=== PATIENT | female | born 1970 | race Caucasian/White ===

== ENCOUNTER → 2016-12-11 | Outpatient (CLI) | payer SELFPAY ==
[~2016-12-11] MED LIST: ASEN10TA9 PO; DULO30CA23 PO; HYDR-2122 PO; OMEP20CA81 PO; QUET50TA16 PO; TRAZ-56 PO
--- NOTE | 2016-12-11 13:48 | DI ---
Indication: ITS.REASON: N91.2 AMENORRHEA; N92.0 EXCESSIVE FREQUENT MENSTRUATION WITH RE PROCEDURE: US TRANSVAGINAL (NON-OB): Encounter: Initial Comparison: None FINDINGS: Transvaginal and transabdominal pelvic imaging was performed. The uterus measures 10.4 x 5.2 x 6.6 cm. section scar noted. The parenchyma is otherwise homogeneous without fibroids. The endometrial stripe measures 8 mm in thickness. There is some fluid within the endometrial canal. There is no evidence of focal endometrial mass. Right ovary appears normal and measures 3.3 x 2.5 x 1.5 cm. The left ovary was not visualized by ultrasound. There are no abnormal adnexal masses detected. IMPRESSION: Small amount of fluid in the endometrial canal without focal endometrial thickening or mass. This could be due to the phase of patient's menstrual cycle. Otherwise negative exam. .
== END ==
LOC: IMA 12:17
PROVIDERS: ATTEND Internal Medicine
DX: N91.2 Amenorrhea, unspecified (principal); N92.0 Excessive and frequent menstruation with regular cycle

== ENCOUNTER 2016-12-22 00:10 | Emergency (ER) | payer SELFPAY ==
[~2016-12-22] VITALS: Ht 157.5 cm; Wt 80.3 kg
[~2016-12-22 00:10] MED LIST changes: -ASEN10TA9 PO
--- OUTSIDE RECORDS SUMMARY | 2016-12-22 00:15 | XMS REPORT ---
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 Problem Unspecified vitamin D deficiency 268.9 Active Problem Depressive disorder, not elsewhere classified 311 Active Problem Unspecified menopausal and postmenopausal disorder 627.9 Active Problem Neutropenia, unspecified 288.00 Active Problem Nonspecific abnormal results of liver function study 794.8 Active Medications Medication Code System Code Instructions Start Date End Date Status Dosage Vitamin D3 [facility] [address] UNIT Orally weekly x 8 weeks November 06, 2014 1 capsule Cymbalta [facility] [address]-68 90 MG Orally Once a day 2 capsule Omeprazole [facility] [address]-15 20 MG Orally Once a day Jul 11, 2014 1 capsule Iron [facility] 61630144992 325 mg Orally BID 1 tablet Sprintec 28 [facility] [address]-45 0.25-35 MG-MCG Orally Once a day Jun 06, 2014 1 tablet HydrOXYzine HCl [facility] [address]-45 50 MG Orally Four times a day 1 tablet as needed Trazodone HCl [facility] [address]-83 50 MG Orally Once a day 1 tablet at bedtime Seroquel XR [facility] [address]-00 50 MG Orally Once a day 1 tablet in the evening Levothyroxine Sodium [facility] [address]-22 25 MCG Orally Once a day 1 tablet on an empty stomach in the morning Procedures Procedure Coding System Code Date HEPATITIS PANEL CPT-4 86080 February 21, 2015 Results No Known Results Summary Purpose eClinicalWorks Submission
--- OUTSIDE RECORDS SUMMARY | 2016-12-22 00:15 | XMS REPORT ---
Author Author Dwaine Madera Organization eClinicalWorks Address Unknown Phone Unavailable Care Team Providers Care Sander Wooden Pencils Name Role Phone Dwaine Madera CP Unavailable Allergies No Known Allergies Problems Problem Type Condition Code Onset Dates Condition Status Assessment Nonalcoholic steatohepatitis (ROYAL) K75.81 Active Problem Esophageal reflux 530.81 Active Problem [...] Instructions Start Date End Date Status Dosage Trazodone HCl [facility] [address]-32 50 MG Orally Once a day 1 tablet at bedtime Seroquel XR [facility] [address]-48 200 MG Orally Once a day 1 tablet in the evening Latuda [facility] [address]-22 40 MG Orally BID not defined Cymbalta [facility] [address]-84 60 MG Orally Once a day 2 capsule Omeprazole [facility] [address]-82 20 MG Orally Once a day Jul 11, 2014 1 capsule Iron [facility] 06360948616 325 mg Orally BID 1 tablet Procedures Procedure Coding System Code Date IRON PROFILE 2 CPT-4 01469 Jul 16, 2015 IRON PROFILE 1 CPT-4 85044 Jul 16, 2015 FERRITIN CPT-4 79072 Jul 16, 2015 RETICULOCYTE COUNT AUTO CPT-4 67818 Jul 16, 2015 PATHOLOGIST REVIEW CPT-4 10659 Jul 16, 2015 Results No Known Results Summary Purpose eClinicalWorks Submission
--- OUTSIDE RECORDS SUMMARY | 2016-12-22 00:15 | XMS REPORT ---
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 Assessment Other nonspecific abnormal serum enzyme levels [...] Date End Date Status Dosage Vitamin D3 [facility] [address] UNIT Orally once weekly Jul 20, 2014 Sep 18, 2014 as directed Ranitidine HCl [facility] [address]-97 300 MG Orally Sep 18, 2014 as directed Cymbalta [facility] [address]-21 90 MG Orally Once a day 2 capsule Seroquel XR [facility] [address]-62 50 MG Orally Once a day 1 tablet in the evening Trazodone HCl [facility] [address]-94 50 MG Orally Once a day 1 tablet at bedtime Sprintec 28 [facility] [address]-78 0.25-35 MG-MCG Orally Once a day Jun 06, 2014 1 tablet Iron [facility] [address]-14 325 (65 Fe) MG Orally TID Jun 06, 2014 1 tablet Omeprazole [facility] [address]-72 20 MG Orally Once a day Jul 11, 2014 1 capsule HydrOXYzine HCl [facility] [address]-64 50 MG Orally Four times a day 1 tablet as needed Procedures Procedure Coding System Code Date OFFICE VISIT, EST-LOW COMPLEXITY (15 MIN.) CPT-4 03923 Sep 18, 2014 Vital Signs Date/Time: Sep 18, 2014 Height 61.5 in Weight 187.8 lbs Temperature 98.4 F Blood Pressure Diastolic 82 mm Hg Blood Pressure Systolic 114 mm Hg Cardiac Monitoring Heart Rate 96 /min BMI 34.91 Index Respiratory Rate 16 /min Results No Known Results Summary Purpose eClinicalWorks Submission
--- OUTSIDE RECORDS SUMMARY | 2016-12-22 00:15 | XMS REPORT ---
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
--- OUTSIDE RECORDS SUMMARY | 2016-12-22 00:15 | XMS REPORT ---
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 Problem Esophageal reflux 530.81 Active Problem [...] Instructions Start Date End Date Status Dosage Omeprazole [facility] [address]-29 20 MG Orally Once a day Jul 11, 2014 1 capsule Trazodone HCl [facility] [address]-67 50 MG Orally Once a day 1 tablet at bedtime HydrOXYzine HCl [facility] [address]-12 50 MG Orally Four times a day 1 tablet as needed Sprintec 28 [facility] [address]-64 0.25-35 MG-MCG Orally Once a day Jun 06, 2014 1 tablet Levothyroxine Sodium [facility] [address]-89 25 MCG Orally Once a day 1 tablet on an empty stomach in the morning Cymbalta [facility] [address]-58 90 MG Orally Once a day 2 capsule Vitamin D3 [facility] [address] 83882 UNIT Orally weekly x 8 weeks November 06, 2014 1 capsule Seroquel XR [facility] [address]-45 50 MG Orally Once a day 1 tablet in the evening Iron [facility] 17319162449 325 mg Orally BID 1 tablet Procedures Procedure Coding System Code Date COMPLETE CBC W/AUTO DIFF WBC CPT-4 64726 February 06, 2015 OFFICE VISIT, EST-LOW COMPLEXITY (10 MIN.) CPT-4 66301 February 06, 2015 COMPREHENSIVE METABOLIC PANEL CPT-4 88258 February 06, 2015 Vital Signs Date/Time: February 06, 2015 Height 61.5 in Weight 180.4 lbs Temperature 98.4 F Blood Pressure Diastolic 82 mm Hg Blood Pressure Systolic 128 mm Hg Cardiac Monitoring Heart Rate 84 /min BMI 33.53 Index Respiratory Rate 18 /min Results Name Result Date Reference Range Unit Abnormality Flag CBC With Platelet and Differential Comprehensive Metabolic Panel (CMP) Summary Purpose eClinicalWorks Submission
--- OUTSIDE RECORDS SUMMARY | 2016-12-22 00:15 | XMS REPORT ---
Author Author Dwaine Madera Organization eClinicalWorks Address Unknown Phone Unavailable Care Team Providers Care Community Cultural Development Officer Name Role Phone Dwaine Madera CP Unavailable Allergies, Adverse Reactions, Alerts Substance Reaction Event Type Penicillin hives Drug Allergy latex rash Non Drug Allergy Problems Problem Type Condition Code Onset Dates Condition Status Assessment Gastro-esophageal reflux disease without esophagitis K21.9 Active Assessment Other chest pain R07.89 Active Assessment Major depressive disorder, single episode, unspecified F32.9 Active Assessment Other iron deficiency anemias D50.8 Active Assessment Anemia, unspecified D64.9 Active Problem Esophageal reflux 530.81 Active Problem [...] Instructions Start Date End Date Status Dosage Cymbalta [facility] [address]-45 60 MG Orally Once a day 2 capsule Iron [facility] 61796965343 325 mg Orally BID 1 tablet Trazodone HCl [facility] [address]-41 50 MG Orally Once a day 1 tablet at bedtime Omeprazole [facility] [address]-75 20 MG Orally Once a day Jul 11, 2014 1 capsule Seroquel XR [facility] [address]-39 200 MG Orally Once a day 1 tablet in the evening Procedures Procedure Coding System Code Date OFFICE VISIT, EST-MOD. COMPLEXITY (25 MIN) CPT-4 71897 May 31, 2015 Vital Signs Date/Time: May 31, 2015 Height 61.5 in Weight 191.0 lbs Temperature 97.9 F Blood Pressure Diastolic 74 mm Hg Blood Pressure Systolic 120 mm Hg Cardiac Monitoring Heart Rate 88 /min BMI 35.50 Index Respiratory Rate 16 /min Results No Known Results Summary Purpose eClinicalWorks Submission
--- OUTSIDE RECORDS SUMMARY | 2016-12-22 00:15 | XMS REPORT ---
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 Problem Neutropenia, unspecified 288.00 Active Problem Esophageal reflux 530.81 Active Problem Unspecified menopausal and postmenopausal disorder 627.9 Active Assessment Unspecified menopausal and postmenopausal disorder 627.9 Active Problem Nonspecific abnormal results of liver function study 794.8 Active Problem Depressive disorder, not elsewhere classified 311 Active Medications No Known Medications Procedures Procedure Coding System Code Date COMPLETE CBC W/AUTO DIFF WBC CPT-4 26740 Jul 19, 2014 Vital Signs Date/Time: Jul 18, 2014 Height 61.5 inches Weight 183.3 lbs Temperature 98.0 F Blood Pressure Diastolic 70 mm Hg Blood Pressure Systolic 104 mm Hg Cardiac Monitoring Heart Rate 96 Beats per Minute BMI 34.07 Index Respiratory Rate 16 per Minute Results No Known Results Summary Purpose eClinicalWorks Submission
--- OUTSIDE RECORDS SUMMARY | 2016-12-22 00:15 | XMS REPORT ---
Author Author Chantal Marino eClinicalWorks Address Unknown Phone Unavailable Care Team Providers Care Reverberatory Skimmer Name Role Phone Chantal Marino Unavailable Allergies, Adverse Reactions, Alerts Substance Reaction Event Type Penicillin hives Drug Allergy latex rash Non Drug Allergy Problems Problem Type Condition ICD-9 Code Onset Dates Condition Status Problem Unspecified menopausal and postmenopausal disorder 627.9 Active Assessment Depressive disorder, not elsewhere classified 311 Active Problem Depressive disorder, not elsewhere classified 311 Active Assessment Unspecified menopausal and postmenopausal disorder 627.9 Active Assessment Encounter for long-term (current) use of other medications V58.69 Active Medications Medication Code System Code Instructions Start Date End Date Status Dosage HydrOXYzine HCl [facility] [address]-14 50 MG Orally Four times a day Active 1 tablet as needed Ranitidine HCl [facility] [address]-80 300 MG Orally Active as directed Trazodone HCl [facility] [address]-87 50 MG Orally Once a day Active 1 tablet at bedtime Diflucan [facility] [address]-15 200 MG Orally Once a day January 05, 2014 Inactive 1 tablet Vitamin D [facility] [address]-20 1000 UNIT Orally Once a day Active 1 capsule Cymbalta [facility] [address]-41 90 MG Orally Once a day Active 2 capsule Seroquel XR [facility] [address]-05 50 MG Orally Once a day Active 1 tablet in the evening Procedures Procedure Coding System Code Date URINALYSIS, IN HOUSE CPT-4 91592 May 26, 2014 COMPREHENSIVE METABOLIC PANEL CPT-4 84155 May 26, 2014 TSH CPT-4 88342 May 26, 2014 OFFICE VISIT, EST-LOW COMPLEXITY (15 MIN.) CPT-4 42232 May 26, 2014 COMPLETE CBC W/AUTO DIFF WBC CPT-4 29228 May 26, 2014 Vital Signs Date/Time: May 26, 2014 Height 61.5 inches Weight 182.1 lbs Temperature 98 F Blood Pressure Diastolic 80 mm Hg Blood Pressure Systolic 100 mm Hg Cardiac Monitoring Heart Rate 80 Beats per Minute BMI 33.85 Index Respiratory Rate 16 per Minute Results Name Result Date Reference Range Unit In House Urinalysis, automated ----Color yellow [id number] - ----Clarity clear [id number] - CBC With Platelet and Differential Summary Purpose eClinicalWorks Submission
--- OUTSIDE RECORDS SUMMARY | 2016-12-22 00:15 | XMS REPORT ---
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 Assessment Encounter for long-term (current) use of other medications V58.69 Active Assessment Esophageal reflux 530.81 Active Problem 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 Problem Neutropenia, unspecified 288.00 Active Problem Esophageal reflux 530.81 Active Problem Unspecified menopausal and postmenopausal disorder 627.9 Active Assessment Unspecified menopausal and postmenopausal disorder 627.9 Active Problem Nonspecific abnormal results of liver function study 794.8 Active Problem Depressive disorder, not elsewhere classified 311 Active Medications Medication Code System Code Instructions Start Date End Date Status Dosage Sprintec 28 [facility] [address]-05 0.25-35 MG-MCG Orally Once a day Jun 06, 2014 Active 1 tablet Trazodone HCl [facility]NOTE 2] [address]-67 50 MG Orally Once a day Active 1 tablet at bedtime Ranitidine HCl [facility]NOTE 2] [address]-97 300 MG Orally Active as directed HydrOXYzine HCl [facility]NOTE 2] [address]-64 50 MG Orally Four times a day Active 1 tablet as needed Vitamin D [facility]NOTE 2] [address]-73 1000 UNIT Orally Once a day Active 1 capsule Iron [facility]NOTE 2] [address]-49 325 (65 Fe) MG Orally BID Jun 06, 2014 Active 1 tablet Seroquel XR [facility]NOTE 2] [address]-40 50 MG Orally Once a day Active 1 tablet in the evening Cymbalta [facility]NOTE 2] [address]-70 90 MG Orally Once a day Active 2 capsule Procedures Procedure Coding System Code Date VITAMIN D 25 HYDROXY CPT-4 92387 Jul 18, 2014 OFFICE VISIT, EST-LOW COMPLEXITY (15 MIN.) CPT-4 93323 Jul 18, 2014 COMPLETE CBC W/AUTO DIFF WBC CPT-4 61898 Jul 18, 2014 Vital Signs Date/Time: Jul 18, 2014 Height 61.5 inches Weight 183.3 lbs Temperature 98.0 F Blood Pressure Diastolic 70 mm Hg Blood Pressure Systolic 104 mm Hg Cardiac Monitoring Heart Rate 96 Beats per Minute BMI 34.07 Index Respiratory Rate 16 per Minute Results Name Result Date Reference Range Unit CBC With Platelet and Differential Vitamin D, 25-Hydroxy Summary Purpose eClinicalWorks Submission
--- OUTSIDE RECORDS SUMMARY | 2016-12-22 00:15 | XMS REPORT ---
Author Author Elli Rodriguez [facility] eClinicalWorks Address Unknown Phone Unavailable Care Team Providers Care Bus Mechanic Name Role Phone Elli Rodriguez CP Unavailable Allergies No Known Allergies Problems Problem Type Condition Code Onset Dates Condition Status Problem Esophageal [...]
--- OUTSIDE RECORDS SUMMARY | 2016-12-22 00:15 | XMS REPORT ---
Author Author Elli Rodriguez [facility] eClinicalWorks Address Unknown Phone Unavailable Care Team Providers Care Digital Performance Analyst Name Role Phone Elli Rodriguez CP Unavailable [...] Instructions Start Date End Date Status Dosage Iron [facility] [address]-19 325 (65 Fe) MG Orally BID Jun 06, 2014 Active 1 tablet Vital Signs Date/Time: Jul 18, 2014 Height 61.5 inches Weight 183.3 lbs Temperature 98.0 F Blood Pressure Diastolic 70 mm Hg Blood Pressure Systolic 104 mm Hg Cardiac Monitoring Heart Rate 96 Beats per Minute BMI 34.07 Index Respiratory Rate 16 per Minute Results No Known Results Summary Purpose eClinicalWorks Submission
--- OUTSIDE RECORDS SUMMARY | 2016-12-22 00:15 | XMS REPORT ---
Author Author Elli Rodriguez [facility] eClinicalWorks Address Unknown Phone Unavailable Care Team Providers Care Ballpoint Pens Assembler Name Role Phone Elli Rodriguez CP Unavailable [...]
--- OUTSIDE RECORDS SUMMARY | 2016-12-22 00:15 | XMS REPORT ---
Author Author Elli Rodriguez [facility] eClinicalWorks Address Unknown Phone Unavailable Care Team Providers Care Rn Clinical Research Name Role Phone Elli Rodriguez CP Unavailable Allergies No Known Allergies Problems Problem Type Condition ICD-9 Code Onset Dates Condition Status Assessment Other nonspecific abnormal serum enzyme levels 790.5 Active Assessment Unspecified vitamin D deficiency 268.9 Active Assessment Iron deficiency anemia secondary to [...] Date End Date Status Dosage HydrOXYzine HCl [facility] [address]-34 50 MG Orally Four times a day 1 tablet as needed Omeprazole [facility] [address]-41 20 MG Orally Once a day Jul 11, 2014 1 capsule Iron [facility] 32229538802 325 mg Orally BID 1 tablet Trazodone HCl [facility] [address]-49 50 MG Orally Once a day 1 tablet at bedtime Cymbalta [facility] [address]-42 90 MG Orally Once a day 2 capsule Seroquel XR [facility] [address]-73 50 MG Orally Once a day 1 tablet in the evening Sprintec 28 [facility] [address]-02 0.25-35 MG-MCG Orally Once a day Jun 06, 2014 1 tablet Procedures Procedure Coding System Code Date COMPLETE CBC W/AUTO DIFF WBC CPT-4 59836 November 01, 2014 COMPREHENSIVE METABOLIC PANEL CPT-4 98002 November 01, 2014 VITAMIN D 25 HYDROXY CPT-4 02303 November 01, 2014 Results No Known Results Summary Purpose eClinicalWorks Submission
--- OUTSIDE RECORDS SUMMARY | 2016-12-22 00:15 | XMS REPORT ---
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 328510281 Problem Unspecified vitamin D deficiency 268.9 Active 34161540 Problem Esophageal reflux 530.81 Active 992729406 Problem Seasonal allergies J30.2 Active 614952148 Problem Hyperlipidemia, unspecified E78.5 Active 00955556 Problem Major depressive disorder, single episode, unspecified F32.9 Active 48480920 Problem Allergic rhinitis, unspecified J30.9 Active 25947630 Problem Gastro-esophageal reflux disease without esophagitis K21.9 Active 929719946 Problem Decreased white blood cell count, unspecified D72.819 Active 46753048 Problem Unspecified menopausal and postmenopausal disorder 627.9 Active 210443507 Problem Depressive disorder, not elsewhere classified 311 Active 44763405 Problem Nonspecific abnormal results of liver function study 794.8 Active 915050112 Assessment Acute sinusitis, unspecified J01.90 Jul, Active 64669708 Problem Neutropenia, unspecified 288.00 Active 515485021 ALLERGIES Substance Reaction Event Type Date Status Penicillin hives Drug Allergy Jul, Active latex rash Non Drug Allergy Jul, Active SOCIAL HISTORY No smoking Hx information available PLAN OF CARE Activity Details Pending Test In House Test, Urine 2 Weeks,Reason: VITAL SIGNS Weight 189.4 lbs 2016-07-24 Height 61.5 in 2016-07-24 Temperature 98.1 degrees Fahrenheit 2016-07-24 BMI 35.20 kg/m2 2016-07-24 Heart Rate 97 /min 2016-07-24 Respiratory Rate 16 /min 2016-07-24 Oximetry 99 % 2016-07-24 Blood pressure systolic 130 mm Hg 2016-07-24 Blood pressure diastolic 86 mm Hg 2016-07-24 MEDICATIONS Medication Instructions Dosage Frequency Start Date End Date Duration Status Trazodone HCl 50 MG Orally 1 time at hs 2 tabs Active Cymbalta 60 MG Orally Once a day 2 capsule 24h Active Mucinex 600 MG Orally every 12 hrs as needed for cough/congestion. 1 tablet as needed Jul, Jul, 10 days Active Omeprazole 20 MG Orally Once a day 1 capsule 24h Jul, 30 days Active Doxycycline Hyclate 100 MG Orally Twice a day 1 tablet 12h Jul, Jul, 10 day(s) Active Saphris 5 MG Sublingual Twice a day 1 tablet under the tongue and allow to dissolve 12h Active Nasacort AQ 55 MCG/ACT Nasally Once a day 1 puff in each nostril 24h Active Singulair 10 MG Orally Once a day 1 tablet in the evening 24h Jun, 30 days Active RESULTS Name Result Date Reference Range In House Test, Urine Test, Urine negative PROCEDURES Procedure Date Ordered Related Diagnosis Body Site TEST, IN HOUSE Jul 24, 2016 OFFICE VISIT, EST-LOW COMPLEXITY (15 MIN.) Jul 24, 2016 IMMUNIZATIONS No Known Immunizations
--- OUTSIDE RECORDS SUMMARY | 2016-12-22 00:15 | XMS REPORT ---
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 Problem Unspecified vitamin D deficiency 268.9 Active Problem Depressive disorder, not elsewhere classified 311 Active Problem Unspecified menopausal and postmenopausal disorder 627.9 Active Problem Neutropenia, unspecified 288.00 Active Problem Nonspecific abnormal results of liver function study 794.8 Active Assessment Other specified abnormal uterine and vaginal bleeding N93.8 Active Assessment Major depressive disorder, single episode, unspecified F32.9 Active Assessment Other fatigue R53.83 Active Medications Medication Code System Code Instructions Start Date End Date Status Dosage Seroquel XR [facility] [address]-50 200 MG Orally Once a day 1 tablet in the evening Iron [facility] 09847615581 325 mg Orally BID 1 tablet Omeprazole [facility] [address]-05 20 MG Orally Once a day Jul 11, 2014 1 capsule Cymbalta [facility] [address]-30 60 MG Orally Once a day 2 capsule Trazodone HCl [facility] [address]-82 50 MG Orally Once a day 1 tablet at bedtime Latuda [facility] [address]-41 40 MG Orally BID not defined Procedures Procedure Coding System Code Date OFFICE VISIT, EST-MOD. COMPLEXITY (25 MIN) CPT-4 51464 Jun 14, 2015 Vital Signs Date/Time: Jun 14, 2015 Height 61.5 in Weight 190.8 lbs Temperature 97.4 F Blood Pressure Diastolic 82 mm Hg Blood Pressure Systolic 118 mm Hg Cardiac Monitoring Heart Rate 80 /min BMI 35.46 Index Respiratory Rate 16 /min Results No Known Results Summary Purpose eClinicalWorks Submission
--- OUTSIDE RECORDS SUMMARY | 2016-12-22 00:15 | XMS REPORT ---
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 Problem Hyperlipidemia, unspecified E78.5 Active Problem Gastro-esophageal reflux disease without esophagitis K21.9 Active Problem Seasonal allergies J30.2 Active Problem Allergic rhinitis, unspecified J30.9 Active Problem Unspecified vitamin D deficiency 268.9 Active Problem Decreased white blood cell count, unspecified D72.819 Active Problem Major depressive disorder, single episode, unspecified F32.9 Active Assessment Seasonal allergies J30.2 Active Problem Unspecified menopausal and postmenopausal disorder 627.9 Active Problem Depressive disorder, not elsewhere classified 311 Active Problem Nonspecific abnormal results of liver function study 794.8 Active Medications Medication Code System Code Instructions Start Date End Date Status Dosage Saphris [facility] [address]-61 5 MG Sublingual Twice a day 1 tablet under the tongue and allow to dissolve Nasacort AQ [facility] [address]-17 55 MCG/ACT Nasally Once a day 1 puff in each nostril Singulair [facility] [address]-07 10 MG Orally Once a day Jun 17, 2016 1 tablet in the evening Cymbalta [facility] [address]-21 60 MG Orally Once a day 2 capsule Mariah Allergy [facility] [address]-12 180 MG Orally Once a day Jun 17, 2016 Jul 17, 2016 1 tablet Omeprazole [facility] [address]-71 20 MG Orally Once a day Jul 11, 2014 1 capsule Trazodone HCl [facility] [address]-52 50 MG Orally 1 time at hs 2 tabs Procedures Procedure Coding System Code Date OFFICE VISIT, EST-LOW COMPLEXITY (15 MIN.) CPT-4 26830 Jul 15, 2016 Vital Signs Date/Time: Jul 15, 2016 Temperature 98.3 F Height 61.5 in Weight 190.4 lbs Blood Pressure Diastolic 78 mm Hg Blood Pressure Systolic 134 mm Hg Cardiac Monitoring Heart Rate 92 /min BMI 35.39 Index Oximetry 97 % Respiratory Rate 16 /min Results No Known Results Summary Purpose eClinicalWorks Submission
--- OUTSIDE RECORDS SUMMARY | 2016-12-22 00:15 | XMS REPORT ---
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 Problem Neutropenia, unspecified 288.00 Active Problem Gastro-esophageal reflux disease without esophagitis K21.9 Active Problem Decreased white blood cell count, unspecified D72.819 Active Problem Hyperlipidemia, unspecified E78.5 Active Problem Unspecified vitamin D deficiency 268.9 Active Problem Esophageal reflux 530.81 Active Problem Major depressive disorder, single episode, unspecified F32.9 Active Problem Allergic rhinitis, unspecified J30.9 Active Assessment Abnormal results of liver function studies R94.5 Active Assessment Hyperlipidemia, unspecified E78.5 Active Assessment Gastro-esophageal reflux disease without esophagitis K21.9 Active Problem Unspecified menopausal and postmenopausal disorder 627.9 Active Assessment Allergic rhinitis, unspecified J30.9 Active Problem Depressive disorder, not elsewhere classified 311 Active Medications Medication Code System Code Instructions Start Date End Date Status Dosage Omeprazole [facility] [address]-03 20 MG Orally Once a day Jul 11, 2014 1 capsule Singulair [facility] [address]-09 5 MG Orally Once a day Jun 17, 2016 1 tablet in the evening Cymbalta [facility] [address]-29 60 MG Orally Once a day 2 capsule Trazodone HCl [facility] [address]-13 50 MG Orally 1 time at hs 2 tabs Saphris [facility] [address]-75 5 MG Sublingual Twice a day 1 tablet under the tongue and allow to dissolve Mariah Allergy [facility] [address]-95 180 MG Orally Once a day Jun 17, 2016 Jul 17, 2016 1 tablet Nasacort AQ [facility] [address]-76 55 MCG/ACT Nasally Once a day 1 puff in each nostril Procedures Procedure Coding System Code Date OFFICE VISIT, EST-LOW COMPLEXITY (15 MIN.) CPT-4 49250 Jun 17, 2016 Vital Signs Date/Time: Jun 17, 2016 Temperature 98.4 F Height 61.5 in Weight 183.12 lbs Blood Pressure Diastolic 86 mm Hg Blood Pressure Systolic 136 mm Hg Cardiac Monitoring Heart Rate 96 /min BMI 34.04 Index Oximetry 97 % Respiratory Rate 16 /min Results No Known Results Summary Purpose eClinicalWorks Submission
--- OUTSIDE RECORDS SUMMARY | 2016-12-22 00:15 | XMS REPORT ---
Author Author Dwaine Madera [facility] eClinicalWorks Address Unknown Phone Unavailable Care Team Providers Care Automatic Lehr Operator Name Role Phone Dwaine Madera CP Unavailable Allergies No Known Allergies Problems Problem Type Condition Code Onset Dates Condition Status Problem Depressive disorder, not elsewhere classified 311 Active Problem Neutropenia, unspecified 288.00 Active Problem Nonspecific abnormal results of liver function study 794.8 Active Assessment Anemia, unspecified D64.9 Active Problem Unspecified menopausal and postmenopausal disorder 627.9 Active Problem Decreased white blood cell count, unspecified D72.819 Active Problem Major depressive disorder, single episode, unspecified F32.9 Active Problem Gastro-esophageal reflux disease without esophagitis K21.9 Active Problem Esophageal reflux 530.81 Active Problem 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 for 1 tablet as needed Trazodone HCl [facility] [address]-99 50 MG Orally 1 time at hs 2 tabs Nasal Decongestant [place] [facility] [address]-27 0.05 % Nasally Twice a day 2 drops as needed Nasacort AQ [facility] [address]-12 55 MCG/ACT Nasally Once a day 1 puff in each nostril Cymbalta [facility] [address]-63 60 MG Orally Once a day 2 capsule Procedures Procedure Coding System Code Date COMPREHENSIVE METABOLIC PANEL CPT-4 53284 Jun 03, 2016 LIPID PANEL CPT-4 76693 Jun 03, 2016 COMPLETE CBC W/AUTO DIFF WBC CPT-4 41761 Jun 03, 2016 TEST, IN HOUSE CPT-4 41131 Jun 03, 2016 TSH CPT-4 68000 Jun 03, 2016 URINALYSIS, IN HOUSE CPT-4 32592 Jun 03, 2016 Results No Known Results Summary Purpose eClinicalWorks Submission
--- OUTSIDE RECORDS SUMMARY | 2016-12-22 00:16 | XMS REPORT ---
Author Author Elli Rodriguez [facility] eClinicalWorks Address Unknown Phone Unavailable Care Team Providers Care Well Drill Operator Name Role Phone Elli Rodriguez CP Unavailable [...]
--- OUTSIDE RECORDS SUMMARY | 2016-12-22 00:16 | XMS REPORT ---
Author Author Elli Rodriguez Organization [employer] Address Unknown Phone Unavailable Care Team Providers Care Mine Engineer Name Role Phone Elli Rodriguez CP Unavailable Allergies No Known Allergies Problems Problem Type Condition Code Onset Dates Condition Status Assessment Nonspecific abnormal results of liver function study 794.8 Active Assessment Unspecified menopausal and postmenopausal disorder 627.9 Active Problem Esophageal reflux 530.81 Active Problem [...] Date End Date Status Dosage Trazodone HCl [facility] [address]-82 50 MG Orally Once a day 1 tablet at bedtime Cymbalta [facility] [address]-49 90 MG Orally Once a day 2 capsule Seroquel XR [facility] [address]-27 50 MG Orally Once a day 1 tablet in the evening Sprintec 28 [facility] [address]-98 0.25-35 MG-MCG Orally Once a day Jun 06, 2014 1 tablet Iron [facility] [address]-65 325 (65 Fe) MG Orally BID Jun 06, 2014 1 tablet HydrOXYzine HCl [facility] [address]-83 50 MG Orally Four times a day 1 tablet as needed Ranitidine HCl [facility] [address]-65 300 MG Orally as directed Vitamin D3 [facility] [address]807 UNIT Orally once weekly Jul 20, 2014 Sep 18, 2014 as directed Procedures Procedure Coding System Code Date COMPLETE CBC W/AUTO DIFF WBC CPT-4 46563 Sep 14, 2014 COMPREHENSIVE METABOLIC PANEL CPT-4 48211 Sep 14, 2014 Results No Known Results Summary Purpose eClinicalWorks Submission
--- OUTSIDE RECORDS SUMMARY | 2016-12-22 00:16 | XMS REPORT ---
Author Author Neto Jean Organization [employer] Address Unknown Phone Unavailable Care Team Providers Care Production Control Scheduler Name Role Phone Neto Jean CP Unavailable Allergies No Known Allergies Problems Problem Type Condition Code Onset Dates Condition Status Problem Depressive disorder, not elsewhere classified 311 Active Problem Neutropenia, unspecified 288.00 Active Problem Nonspecific abnormal results of liver function study 794.8 Active Assessment Dental caries on pit and fissure surface penetrating into pulp K02.53 Active Problem Unspecified menopausal and postmenopausal disorder [...] Start Date End Date Status Dosage Iron [facility] 46656006765 325 mg Orally BID 1 tablet Omeprazole [facility] [address]-73 20 MG Orally Once a day Jul 11, 2014 1 capsule Trazodone HCl [facility] [address]-10 50 MG Orally Once a day 1 tablet at bedtime Hydrocodone-Acetaminophen [facility] [address]-63 7.5-325 MG Orally every 4-6 hrs p.r.n. for 1 tablet as needed Cymbalta [facility] [address]-60 60 MG Orally Once a day 2 capsule Procedures Procedure Coding System Code Date EXTRAC ERUPTED TOOTH/EXPOSED ROOT CPT-4 D7140 Jun 02, 2016 Results No Known Results Summary Purpose eClinicalWorks Submission
--- OUTSIDE RECORDS SUMMARY | 2016-12-22 00:16 | XMS REPORT ---
Author Author Dwaine Madera Organization [employer] Address Unknown Phone Unavailable Care Team Providers Care Pastor Name Role Phone Dwaine Madera CP Unavailable Allergies No Known Allergies Problems Problem Type Condition Code Onset Dates Condition Status Assessment Other chest pain R07.89 Active Problem Esophageal reflux 530.81 Active Problem [...] Date End Date Status Dosage Seroquel XR [facility] [address]-12 200 MG Orally Once a day 1 tablet in the evening Omeprazole [facility] [address]-03 20 MG Orally Once a day Jul 11, 2014 1 capsule Cymbalta [facility] [address]-84 60 MG Orally Once a day 2 capsule Iron [facility] 72977381195 325 mg Orally BID 1 tablet Trazodone HCl [facility] [address]-35 50 MG Orally Once a day 1 tablet at bedtime Procedures Procedure Coding System Code Date URINALYSIS, IN HOUSE CPT-4 05431 Jun 04, 2015 CBC WITH MANUAL DIFFERENTIAL CPT-4 44356 Jun 04, 2015 TEST, IN HOUSE CPT-4 88997 Jun 04, 2015 LIPID PANEL CPT-4 14654 Jun 04, 2015 COMPREHENSIVE METABOLIC PANEL CPT-4 37394 Jun 04, 2015 Results Name Result Date Reference Range Unit Abnormality Flag In House Test, Urine Summary Purpose eClinicalWorks Submission
--- OUTSIDE RECORDS SUMMARY | 2016-12-22 00:16 | XMS REPORT ---
Author Author Neto Jean [facility] eClinicalWorks Address Unknown Phone Unavailable Care Team Providers Care Hide Paster Name Role Phone Neto Jean CP Unavailable Allergies, Adverse Reactions, Alerts Substance Reaction Event Type Penicillin hives Drug Allergy latex rash Non Drug Allergy Problems Problem Type Condition Code Onset Dates Condition Status Assessment Encounter for dental examination and cleaning without abnormal findings Z01.20 Active Problem Esophageal reflux 530.81 Active Problem [...] Start Date End Date Status Dosage Cymbalta [facility] [address]-21 60 MG Orally Once a day 2 capsule Iron [facility] 89913748043 325 mg Orally BID 1 tablet Trazodone HCl [facility] [address]-77 50 MG Orally Once a day 1 tablet at bedtime Omeprazole [facility] [address]-81 20 MG Orally Once a day Jul 11, 2014 1 capsule Procedures Procedure Coding System Code Date LTD ORAL EVALUATION - PROBLEM FOCUS CPT-4 D0140 May 28, 2016 PALLIATVE TX DENTAL PAIN-MINOR PROC CPT-4 D9110 May 28, 2016 INTRAORL-PERIAPICAL 1 FILM 37748 CPT-4 D0220 May 28, 2016 Results No Known Results Summary Purpose eClinicalWorks Submission
--- OUTSIDE RECORDS SUMMARY | 2016-12-22 00:16 | XMS REPORT ---
Author Author Elli Rodriguez Organization eClinicalWorks Address Unknown Phone Unavailable Care Team Providers Care Pickling Tank Operator Name Role Phone Elli Rodriguez CP Unavailable Allergies No Known Allergies Problems Problem Type Condition Code Onset Dates Condition Status Assessment Encounter for long-term (current) use of other medications V58.69 Active Problem Esophageal reflux 530.81 Active Problem [...] Date End Date Status Dosage HydrOXYzine HCl [facility] [address]-95 50 MG Orally Four times a day 1 tablet as needed Levothyroxine Sodium [facility] [address]-05 25 MCG Orally Once a day 1 tablet on an empty stomach in the morning Sprintec 28 [facility] [address]-01 0.25-35 MG-MCG Orally Once a day Jun 06, 2014 1 tablet Trazodone HCl [facility] [address]-62 50 MG Orally Once a day 1 tablet at bedtime Cymbalta [facility] [address]-21 90 MG Orally Once a day 2 capsule Omeprazole [facility] [address]-68 20 MG Orally Once a day Jul 11, 2014 1 capsule Seroquel XR [facility] [address]-28 50 MG Orally Once a day 1 tablet in the evening Iron [facility] 29859069987 325 mg Orally BID 1 tablet Vitamin D3 [facility] [address]90 UNIT Orally weekly x 8 weeks November 06, 2014 1 capsule Procedures Procedure Coding System Code Date TSH WITH REFLEX T4 CPT-4 37896 December 19, 2014 Results No Known Results Summary Purpose eClinicalWorks Submission
--- OUTSIDE RECORDS SUMMARY | 2016-12-22 00:16 | XMS REPORT ---
Author Author Elli Rodriguez [facility] eClinicalWorks Address Unknown Phone Unavailable Care Team Providers Care Psychiatric Cns Name Role Phone Elli Rodriguez CP Unavailable [...]
--- OUTSIDE RECORDS SUMMARY | 2016-12-22 00:16 | XMS REPORT ---
Author Author Dwaine Madera Organization eClinicalWorks Address Unknown Phone Unavailable Care Team Providers Care Belt And Link Shop Supervisor Name Role Phone Dwaine Madera CP Unavailable Allergies, Adverse Reactions, Alerts Substance Reaction Event Type Penicillin hives Drug Allergy latex rash Non Drug Allergy Problems Problem Type Condition Code Onset Dates Condition Status Assessment Encounter for gynecological examination (general) (routine) without abnormal findings Z01.419 Active Problem Esophageal reflux 530.81 Active Problem [...] Start Date End Date Status Dosage Cymbalta [facility] [address]-25 60 MG Orally Once a day 2 capsule Trazodone HCl [facility] [address]-90 50 MG Orally Once a day 1 tablet at bedtime Omeprazole [facility] [address]-96 20 MG Orally Once a day Jul 11, 2014 1 capsule Iron [facility] 69860478352 325 mg Orally BID 1 tablet Seroquel XR [facility] [address]-24 200 MG Orally Once a day 1 tablet in the evening Latuda [facility] [address]-61 40 MG Orally BID not defined Procedures Procedure Coding System Code Date OFFICE VISIT, EST-LOW COMPLEXITY (15 MIN.) CPT-4 69067 Aug 02, 2015 Vital Signs Date/Time: Aug 02, 2015 Height 61.5 in Weight 194.8 lbs Temperature 97.8 F Blood Pressure Diastolic 86 mm Hg Blood Pressure Systolic 128 mm Hg Cardiac Monitoring Heart Rate 100 /min BMI 36.21 Index Oximetry 98 % Respiratory Rate 16 /min Results No Known Results Summary Purpose eClinicalWorks Submission
--- OUTSIDE RECORDS SUMMARY | 2016-12-22 00:16 | XMS REPORT ---
Author Author Dwaine Madera Organization eClinicalWorks Address Unknown Phone Unavailable Care Team Providers Care Timber Incisor Operator Name Role Phone Dwaine Madera CP Unavailable Allergies, Adverse Reactions, Alerts Substance Reaction Event Type Penicillin hives Drug Allergy latex rash Non Drug Allergy Problems Problem Type Condition Code Onset Dates Condition Status Assessment Dizziness and giddiness R42 Active Assessment Anemia in other chronic diseases classified elsewhere D63.8 Active Assessment Anemia, unspecified D64.9 Active Problem [...] Date End Date Status Dosage Seroquel XR [facility] [address]-43 200 MG Orally Once a day 1 tablet in the evening Trazodone HCl [facility] [address]-46 50 MG Orally Once a day 1 tablet at bedtime Latuda [facility] [address]-33 40 MG Orally BID not defined Cymbalta [facility] [address]-97 60 MG Orally Once a day 2 capsule Omeprazole [facility] [address]-20 20 MG Orally Once a day Jul 11, 2014 1 capsule Iron [facility] 80387175470 325 mg Orally BID 1 tablet Procedures Procedure Coding System Code Date OFFICE VISIT, EST-MOD. COMPLEXITY (25 MIN) CPT-4 88415 Jul 20, 2015 Vital Signs Date/Time: Jul 20, 2015 Height 61.5 in Weight 194.0 lbs Temperature 98.5 F Blood Pressure Diastolic 86 mm Hg Blood Pressure Systolic 134 mm Hg Cardiac Monitoring Heart Rate 100 /min BMI 36.06 Index Oximetry 98 % Respiratory Rate 16 /min Results No Known Results Summary Purpose eClinicalWorks Submission
--- OUTSIDE RECORDS SUMMARY | 2016-12-22 00:16 | XMS REPORT ---
Author Author Chantal Marino Organization eClinicalWorks Address Unknown Phone Unavailable Care Team Providers Care Hazmat Technician Name Role Phone Chantal Marino CP Unavailable Allergies No Known Allergies Problems Problem Type Condition ICD-9 Code Onset Dates Condition Status Assessment Unspecified vitamin D deficiency 268.9 Active Problem [...] Date End Date Status Dosage Vitamin D3 [facility] [address]64 UNIT Orally once weekly Jul 20, 2014 Sep 18, 2014 Active as directed Vitamin D [facility] [address]-11 1000 UNIT Orally Once a day Inactive 1 capsule Vital Signs Date/Time: Jul 18, 2014 Height 61.5 inches Weight 183.3 lbs Temperature 98.0 F Blood Pressure Diastolic 70 mm Hg Blood Pressure Systolic 104 mm Hg Cardiac Monitoring Heart Rate 96 Beats per Minute BMI 34.07 Index Respiratory Rate 16 per Minute Results No Known Results Summary Purpose eClinicalWorks Submission
--- OUTSIDE RECORDS SUMMARY | 2016-12-22 00:16 | XMS REPORT ---
Author Author Elli Rodriguez [facility] eClinicalWorks Address Unknown Phone Unavailable Care Team Providers Care Salvage Machine Operator Name Role Phone Elli Rodriguez CP [...] study 794.8 Active Medications No Known Medications Vital Signs Date/Time: Jul 18, 2014 Height 61.5 inches Weight 183.3 lbs Temperature 98.0 F Blood Pressure Diastolic 70 mm Hg Blood Pressure Systolic 104 mm Hg Cardiac Monitoring Heart Rate 96 Beats per Minute BMI 34.07 Index Respiratory Rate 16 per Minute Results No Known Results Summary Purpose eClinicalWorks Submission
--- OUTSIDE RECORDS SUMMARY | 2016-12-22 00:16 | XMS REPORT ---
Author Author Elli Rodriguez [facility] eClinicalWorks Address Unknown Phone Unavailable Care Team Providers Care Compliance Professional Name Role Phone Elli Rodriguez CP Unavailable Allergies No Known Allergies Problems Problem Type Condition ICD-9 Code Onset Dates Condition Status Assessment Nonspecific elevation of levels of transaminase or lactic acid dehydrogenase (LDH) 790.4 Active Problem Esophageal reflux 530.81 Active Problem [...]
--- OUTSIDE RECORDS SUMMARY | 2016-12-22 00:17 | XMS REPORT ---
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 Assessment Unspecified vitamin D deficiency 268.9 Active Assessment Nonspecific abnormal results of liver function study 794.8 Active Problem Esophageal reflux 530.81 Active Problem [...] Instructions Start Date End Date Status Dosage Levothyroxine Sodium [facility] [address]-82 25 MCG Orally Once a day 1 tablet on an empty stomach in the morning HydrOXYzine HCl [facility] [address]-10 50 MG Orally Four times a day 1 tablet as needed Trazodone HCl [facility] [address]-51 50 MG Orally Once a day 1 tablet at bedtime Sprintec 28 [facility] [address]-13 0.25-35 MG-MCG Orally Once a day Jun 06, 2014 1 tablet Vitamin D3 [facility] 483[address]192 08536 UNIT Orally weekly x 8 weeks November 06, 2014 1 capsule Omeprazole [facility] [address]-20 20 MG Orally Once a day Jul 11, 2014 1 capsule Seroquel XR [facility] [address]-54 50 MG Orally Once a day 1 tablet in the evening Cymbalta [facility] [address]-82 90 MG Orally Once a day 2 capsule Iron [facility] 28765593154 325 mg Orally BID 1 tablet Procedures Procedure Coding System Code Date OFFICE VISIT, EST-MOD. COMPLEXITY (25 MIN) CPT-4 42866 November 06, 2014 Vital Signs Date/Time: November 06, 2014 Height 61.5 in Weight 183.8 lbs Temperature 98.4 F Blood Pressure Diastolic 84 mm Hg Blood Pressure Systolic 126 mm Hg Cardiac Monitoring Heart Rate 84 /min BMI 34.16 Index Respiratory Rate 16 /min Results No Known Results Summary Purpose eClinicalWorks Submission
--- OUTSIDE RECORDS SUMMARY | 2016-12-22 00:17 | XMS REPORT ---
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 Assessment 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 Assessment Neutropenia, unspecified 288.00 Active Problem Depressive disorder, not elsewhere classified 311 Active Problem Unspecified menopausal and postmenopausal disorder 627.9 Active Medications Medication Code System Code Instructions Start Date End Date Status Dosage Ranitidine HCl [facility] [address]-90 300 MG Orally Active as directed Cymbalta [facility] [address]-87 90 MG Orally Once a day Active 2 capsule Sprintec 28 [facility] [address]-00 0.25-35 MG-MCG Orally Once a day Jun 06, 2014 Active 1 tablet HydrOXYzine HCl [facility] [address]-93 50 MG Orally Four times a day Active 1 tablet as needed Iron [facility] [address]-85 325 (65 Fe) MG Orally BID Jun 06, 2014 Active 1 tablet Vitamin D [facility] [address]-05 1000 UNIT Orally Once a day Active 1 capsule Seroquel XR [facility] [address]-79 50 MG Orally Once a day Active 1 tablet in the evening Trazodone HCl [facility] [address]-03 50 MG Orally Once a day Active 1 tablet at bedtime Procedures Procedure Coding System Code Date OFFICE VISIT, EST-LOW COMPLEXITY (15 MIN.) CPT-4 15509 Jun 06, 2014 Vital Signs Date/Time: Jun 06, 2014 Height 61.5 inches Weight 179.8 lbs Temperature 98.2 F Blood Pressure Diastolic 74 mm Hg Blood Pressure Systolic 108 mm Hg Cardiac Monitoring Heart Rate 82 Beats per Minute BMI 33.42 Index Respiratory Rate 16 per Minute Results No Known Results Immunizations Vaccine Administration Date Refused Influenza Jun 06, 2014 Summary Purpose eClinicalWorks Submission
[2016-12-22 00:25] VITALS: TEMP 97.7; Ht 157.5 cm; Wt 80.3 kg
--- NOTE | 2016-12-22 00:54 | ERPDOC ---
Departure Disposition Decision Date: December 22, 2016 Disposition Decision Time: 01:37 Disposition: 01 DISCHARGED HOME, SELF-CARE Impression Impression Impression: Primary Impression: Anxiety Severity: Moderate Condition: Improved Seen By: Physician only Referrals: ISRAEL GREEN DO (Family) Patient Instructions: Anxiety (ED) Problems/Meds/Labs Reviewed?: Yes Medications reviewed and manag: Yes Additional Instructions: Rest tonight Take your routine medications as prescribed Symptoms return or persist see your regular physician Follow up care ordered?: Yes Mental Status: Alert HPI - Psychosocial General Chief Complaint: Psychiatric Problems Stated Complaint: LEFT SIDE PAIN Time Seen by MD: 00:25 Source: patient, family Exam Limitations: language barrier (family interpreting) HPI - Psychosocial Initial Comments Patient describes a feeling of normalized discomfort and pain over the entire left side of her body from the tip of her head all the way down to her feet. She also feels as though the left side of her body is weak, and that she may be having some pressure in her chest. Patient has had these symptoms before due to anxiety, but never this intense, and never lasting this long. Patient is on multiple medications for both depression and anxiety including Saphris an antidepressant and an antianxiety medication. Occurred At: home Onset: Rapid Duration: 1-3 hrs Severity: moderate Allergies: Coded Allergies: Penicillins (Verified Allergy, Unknown, 12/22/16) Past History Past Medical History Neurological: other Hematologic: anemia Psychological: anxiety, depression Surgical History Denies Surgeries Vaccines Hx Influenza Vaccination: No Hx Pneumococcal Vaccination: No Social History Smoking Status: Never smoker Does patient use chewing tobac: No Second Hand Exposure: No Substance Use Type: does not use Alcohol Intake: none Record Review Pertinent history updated: Yes Review of Systems Constitutional Constitutional: DENIES: appetite decrease, appetite increase, chills, dizziness , fever, weakness ENMT Ears: DENIES: pain Hearing: DENIES: hearing loss, tinnitus Balance: DENIES: vertigo Mouth/Throat: DENIES: change in swallowing, change in voice, hoarsness, painful swallowing, sore throat Cardiovascular Cardiac: chest pain, DENIES: dyspnea on exertion Rhythm/Rate: DENIES: irregular beat, palpitations, tachycardia Vascular: DENIES: pedal edema Pulmonary Respiratory: DENIES: cough, dyspnea, pleuritic chest pain GI Upper Abdomen: DENIES: dysphagia, heartburn/indigestion, nausea, pain, vomiting Lower Abdomen: DENIES: blood in stool, constipation, diarrhea, pain General: DENIES: burning, dysuria, frequency, pain, urgency Musculoskeletal General: pain, DENIES: atrophy of muscles, cramps, gout, joint pain, joint swelling, spasm, tenderness, weakness Integumentary Skin: DENIES: rash, sores Neurological General: DENIES: headache, numbness, tingling, vertigo, weakness Physical Exam General General Nourishment: well nourished, well developed, appears stated age Distress Description Patient does not appear to be in pain, and appears depressed General Body Habitus: well groomed Vitals and Pain Weight: Kilograms: Height (feet): Height (inches): Triage Pain Scale: RN VS reviewed by Provider: Yes Normal Exams: Head: Normocephalic w/o trauma Eyes: Pupils are PERRLA w/ EOMI, No scleral icterus, irritation, or foreign bodies noted ENMT: No facial trauma, nasal exudates, pharyngeal erythema, or exudates are noted Neck: Full range of motion, without adenopathy, JVD, bruits or thyromegaly Chest/Resp: Clear all de paz, with good airflow, and symmetry bilaterally CV: Regular rate and rhythm, without murmur or gallop, Pulses 2+ all extremities, capillary refill, <2 seconds all ext., no pedal edema noted Abdomen: Bowel sounds positive, soft, non-tender, non-distended, no hepatosplenomegaly, masses or bruits noted Lymphatic: No lymphadenopathy, or lymphedema noted Musculoskeletal: No tenderness, or deformity noted, good range of motion, all extremities Integumentary: No rashes, hives, or bruising noted, hair and nails, without abnormality Psychiatric: Patient exhibits, appropriate attention, emotion and affect Neurologic (brief) Neurological Brief: FOUND: CN w/o gross def to obs, DTR 2/4 all extremities, gait w/o gross def to obs, motor-no gross deficits, sensory-no gross deficits, NOT FOUND: ataxia Comments Patient has no focal or global deficits, has no weakness or loss of sensation, and is able to comply with all commands without difficulty Progress Results/Orders Orders Procedure Category Date Status Time EKG EKG 12/22/16 Logged Diazepam (Valium) PHA 12/22/16 Complete 00:45 Medications Current ED Medications Diazepam (Valium) 5 mg O ONCE IM Last administered on 12/22/16 00:59; Start 12/22/16 at 00:45; Stop 12/22/16 at 00:46; Status DC Progress Progress EKG shows normal sinus rhythm without ischemia, ectopy, or infarction This appears to represent a response. Patient is given 5 mg Valium IM, per request - to relief CARMEN BENNETT MD December 22, 2016 00:54
[2016-12-22] MEDS ORDERED: ASEN10TA9 PO (01:07)
--- NOTE | 2016-12-22 01:45 | NUR ---
STATUS PT DENIES PAIN AT THIS TIME, IS SLEEPY BUT EASILY AROUSED.
[2016-12-22 02:00] VITALS: BP 140/87; PULSE 92; RESP 12; O2SAT 97
--- NOTE | 2016-12-22 02:00 | NUR ---
DEPART PT IS DISCHARGED AT THIS TIME, INSTRUCTIONS ARE REVIEWED AND UNDERSTANDING IS VOICED. PT LEAVES AMBULATORY WITH HER SON.
== END 2016-12-22 02:00 | disposition home or self-care (01) ==
LOC: ED 00:10
DX: F41.9 Anxiety disorder, unspecified (principal)
CPT/HCPCS: 93005; 96372